=== PATIENT | female | born 1995 | race Caucasian/White ===

== ENCOUNTER 2016-09-27 01:26 | Emergency (ER) | payer SELFPAY ==
[~2016-09-27] VITALS: Ht 157.5 cm; Wt 49.4 kg
[~2016-09-27 01:26] MED LIST: CITALOPRAM HBR20 MG PO; OXCARBAZEPINE300 MG PO; PROVENTIL HFA6.7 GM INH; PULMICORT0.5 MG/2 M INH; WELLBUTRIN SR100 MG PO; ZEBETA5 MG PO
== END 2016-09-27 03:35 | disposition short-term general hospital (02) ==
LOC: ER 01:26
DX: K59.00 Constipation, unspecified (principal); F32.9 Major depressive disorder, single episode, unspecified; Z88.8 Allergy status to other drugs, medicaments and biological substances

== ENCOUNTER 2016-11-26 20:11 | Emergency (ER) | payer SELFPAY ==
[~2016-11-26] VITALS: Ht 157.5 cm; Wt 49.4 kg
== END 2016-11-26 21:35 | disposition short-term general hospital (02) ==
LOC: ER 20:11
DX: R06.00 Dyspnea, unspecified (principal); R09.89 Other specified symptoms and signs involving the circulatory and respiratory systems; R05 Cough; F41.9 Anxiety disorder, unspecified; F32.9 Major depressive disorder, single episode, unspecified; Z88.8 Allergy status to other drugs, medicaments and biological substances; Z79.899 Other long term (current) drug therapy

== ENCOUNTER 2017-03-23 19:55 | Emergency (ER) | payer SELFPAY ==
[~2017-03-23] VITALS: Ht 157.5 cm; Wt 49.0 kg
[2017-03-23] MEDS ORDERED: THORAZINE10 MG PO (22:39)
[2017-03-23] MEDS ORDERED: TEGRETOL200 MG PO ×2 (22:40→22:42)
[2017-03-23] MEDS ORDERED: CATAPRES0.1 MG PO (22:43)
== END 2017-03-23 22:20 | disposition short-term general hospital (02) ==
LOC: ER 19:55
DX: R11.2 Nausea with vomiting, unspecified (principal); J45.909 Unspecified asthma, uncomplicated; Q85.00 Neurofibromatosis, unspecified; Z90.49 Acquired absence of other specified parts of digestive tract; Z88.8 Allergy status to other drugs, medicaments and biological substances; Z79.899 Other long term (current) drug therapy
CPT/HCPCS: G0477; J2405